=== PATIENT | male | born 1965 | race Caucasian/White ===

== ENCOUNTER 2025-09-07 12:54 | Emergency (ER) | payer MEDICAID ==
[~2025-09-07] VITALS: Ht 182.8 cm; Wt 90.7 kg
[2025-09-07] MEDS ORDERED: Tdap Vaccine 0.5 ML SYR (Adult Vaccine) IM ONE ×2 (13:30→15:55)
[2025-09-07] MEDS ORDERED: ceFAZolin sodium/sodium chlor 20 ML IV ONE (15:35)
== END 2025-09-07 16:03 | disposition home or self-care (01) ==
LOC: ED 12:54
DX: S62.521B Displaced fracture of distal phalanx of right thumb, initial encounter for open fracture (principal); V89.9XXA Person injured in unspecified vehicle accident, initial encounter; Y93.89 Activity, other specified; Y92.89 Other specified places as the place of occurrence of the external cause; Y99.8 Other external cause status